=== PATIENT | female | born 1985 | race Caucasian/White ===

== ENCOUNTER 2017-04-29 18:31 | Emergency (ER) | payer OTHER ==
[~2017-04-29] VITALS: Ht 172.7 cm; Wt 67.3 kg
[2017-04-29 18:34] VITALS: BP 119/78; RESP 16; O2SAT 99
--- NOTE | 2017-04-29 18:44 | ED.REPORT ---
HPI-General Illness Date of Service April 29, 2017 ED Provider: Finesse Carvajal MD Otherwise healthy 31 year old female presents to the ER with an esophageal FB. Pt ate some beef at 1330 which she believes is the FB. She has drank coke, water and olive oil in an attempt to unblock the FB. Pt is unable to swallow her own saliva. Pt has a history of similar, but is typically able to dislodge the blockage by now. Pt denies any other symptoms. Nursing Notes Stated Complaint: FOOD LODGED IN ESOPHAGUS Chief Complaint: ENT & Mouth Nursing Notes Reviewed: Yes Allergies: Coded Allergies: No Known Allergies (Verified Allergy, Unknown, 04/29/17) General Time Seen by MD: 18:43 Chief Complaint Other (Esophageal FB) Hx Obtained From: Patient Arrived By: Walk-in Sudden in Onset?: Yes Onset Occurred: 5 - 8 hours ago Symptom Duration: Since onset Severity: Current: No pain currently Associated with: Denies: Fever, Shortness of breath Pertinent Negative: Relieved by nothing Similar Sx Previous: Yes Past Medical History Past Medical History No significant PMHx Past Surgical History None reported Smoking History Former Smoker Social History Alcohol Use: Denies alcohol use Ambulatory Status Independent Review of Systems Full Review of Systems Constitutional: Denies: Fever Respiratory: Denies: Shortness of breath Cardiovascular: Denies: Chest pain GI: Reports: Dysphagia, Denies: Abdominal pain, Nausea, Vomiting Complete sys rev & neg: except as marked. Physical Exam Vital Signs Vital Signs Date Time Temp Pulse Resp B/P Pulse Ox O2 Delivery O2 Flow Rate FiO2 04/29/17 18:34 36.8 85 16 119/78 99 Room Air Initial VS: Reviewed General/Constitutional: Well-developed, Well-nourished Head / Eyes: Atraumatic, Normocephalic, PERRL ENT: Conjunctiva normal, No scleral icterus Neck: Full range of motion Respiratory: No respiratory distress Skin: Warm, Dry, No cyanosis Neurologic: Alert, Oriented Psychiatric: Mood/affect normal, Behavior normal, Normal thought content Re-Eval/Medical Decision Time of Eval: 18:45 Re-Evaluation/Progress Note: FB dislodged spontaneously. Discussed plan for discharge and follow up. All questions addressed. Counseled Regarding: Diagnosis, Need for follow-up, When/why to return to ED Discharge & Departure Primary Impression: Esophageal foreign body Encounter type: initial encounter Qualified Code: T18.108A - Unspecified foreign body in esophagus causing other injury, initial encounter Disposition: Home Discharge Condition All VS Reviewed: Yes Condition: Stable Patient Instructions: Esophageal Foreign Body (ED) Additional Instructions: I am glad you are able to pass the food bolus. Be careful to chew your food more thoroughly. Good luck with your new baby. Good to see you today. Scribe Attestation Portions of this note were transcribed by Calli Wills. I, (Dr. Carvajal) personally performed the history, physical exam and medical decision-making; I reviewed and confirmed the accuracy of the information in the transcribed note. Signed by: Calli Wills. Raquel, 04/29/2017, 1852 Finesse Carvajal MD April 29, 2017 18:44 Calli Wills April 29, 2017 18:49
== END 2017-04-29 18:55 | disposition home or self-care (01) ==
LOC: SED 18:31
DX: T18.128A Food in esophagus causing other injury, initial encounter (principal); Y93.89 Activity, other specified; Y92.89 Other specified places as the place of occurrence of the external cause; Y99.8 Other external cause status; Z87.891 Personal history of nicotine dependence